=== PATIENT | female | born 1995 | race Caucasian/White ===

== ENCOUNTER 2022-10-06 11:30 | Outpatient (RCR) | payer OTHER, SELFPAY ==
--- NOTE | 2022-09-22 09:16 | PC.NURSE ---
Talia did not show up to the program this morning. I called her and left her a message to call me back.
--- NOTE | 2022-09-22 09:36 | PC.NURSE ---
I spoke to Talia who stated her alarm did not go off thus she overslept this morning. She plans on coming to the program tomorrow. [facility] staff is aware.
[2022-09-23 09:54] VITALS: BMI 26.6
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
[2022-09-23 13:14] VITALS: BP 110/70; PULSE 80; TEMP 36.7
[2022-09-23 13:17] VITALS: BMI 26.5
--- NOTE | 2022-09-23 13:37 | PC.ADMIT ---
Patient is a 27 year old female who was referred to [facility] by [facility] crisis d/t increased sxs of depression with passive SI without plan of intent. According to [facility] patient has a history of inpatient hospitalization in 2016 with paranoid delusions of being . She is not prescribed medications at present. Patient is alert and oriented x4. Calm and cooperative. Presented with depressed mood and affect. Denied SI. Reports she is struggling with stress and anxiety and has been isolating along with feeling sleep deprived. 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 She is currently not working. Patient denied AH or VH at present and does not appear to be responding to internal stimuli.
--- NOTE | 2022-09-25 15:28 | HO.PHPPROGNO ---
Subjective Subjective Date of Service: 09/25/22 Reason For Visit: MDD Interim History: met with patient o review treatment and complete [place] paperwork with patient Medication Compliance: Yes Side effects from medications: No Attending Groups: Yes Review of Systems Review of Systems no change Mental Status Exam Mental Status Exam Narrative: In today's visit she is alert, oriented and pleasant. Normal speech. Good eye contact. Affect is appropriate and varied. No overt signs of hypomania. Moderate dysphoria present. No signs of psychosis. No delusions. No SI/HI. Cognitively is intact and she has a good amount of insight. Judgment is intact Diagnostics Vital Signs (24Hr): BMI result Body Mass Index 26.5 Assessment & Plan Assessment & Plan (1) Bipolar 1 disorder, mixed: Status: Acute Code(s): F31.60 - Bipolar disorder, current episode mixed, unspecified Plan In conclusion based on history she does have indications of a bipolar disorder with mood fluctuations. Her periods of having an elevated mood is not extreme but she is concerned about them and is interested in trying medication. We discussed options and I will try her on Trileptal 150 mg, to be increased by the same every few nights up to 600 mg. Side effects discussed. Importance of electrolyte rich food discussed. My own tendency was to wait in light of the mild to moderate mood fluctuations but she is interested in trying something to see if it could be of help. She is also appropriate for the partial hospital program. 09/25/22 rx for trileptal sent to pharmacy and [facility] papers completed Patient educated on: diagnosis, medication risk/benefits and therapeutic strategies Informed Consent: understands and further education needed Reason for contiued partial hosp. stay Substantial Risk for: harm to self, inability to function and rapid decompensation Certification I certify that partial hospital treatment is medically necessary due to the symptoms and problems resulting from the patient's mental illness and the failure to treat the patient at the partial hospital level of care would likely result in the patient requiring inpatient psychiatric care which could not be prevented at a less intensive level of care. Total time managing care of this patient today ___30_ minutes. Discharge Plan Discharge Attending provider: Hector Harvey Medications: New oxcarbazepine [Trileptal] 300 mg tablet See Rx Instructions .ROUTE .COMPLEX Qty: 30 0RF Rx Instructions: take 1/2 tab daily x 3 days then take 1 tab daily x 3 days then take 1.5 tabs daily x 3 days then take 2 tabs at bedtime daily
--- NOTE | 2022-09-25 15:40 | HO.PHP ---
Clients case was reviewed and opened today in treatment team.
--- NOTE | 2022-09-29 09:40 | HO.PHP ---
Received phone call from [facility] for a psych appointment for Talia, which is scheduled for October 23, 2022 at 9 AM with Chandrika Negron in person at the [facility]. [facility] staff explored if an OP provider was scheduled as well, in which [facility] staff was directed to reach out to Sandhya. [facility] staff was receptive and contacted Sandhya and was able to receive the intake date for Talia's OP appointment which is on October 15, 2022 at 10 AM with Munira Morrison at the [facility].
--- NOTE | 2022-10-06 11:47 | PC.NURSE ---
Addendum entered by Juliette Guillen RN 10/06/22 12:13: Patient to f/u with new prescriber Chandrika Negron for medication refill during her appointment on 10/23/22 at 0900 of Oxcabazapine 300 mg BID. Original Note: Called [facility]'s pharmacy to confirm her medications.She reports she is currently taking Oxcabazapine [address] Davis's instructions. Confirmed with [facility] pharmacy patient picked up Oxcabazapine 300 mg BID increase as directed filled by Dr Davis. Filled #60 on 09/23/22. Patient has an appointment with new prescriber Chandrika Negron on 10/23/22 at 0900. Patient is aware.
== END 2022-10-06 23:59 | disposition home or self-care (01) ==
LOC: HO.PHPA 11:30
PROVIDERS: Visit Provider Psychiatry & Neurology Psychiatry
DX: F31.60 Bipolar disorder, current episode mixed, unspecified (principal)
CPT/HCPCS: 90791; 90853